=== PATIENT | female | born 1995 ===

== ENCOUNTER 2017-09-17 19:45 | Emergency (ER) | payer OTHER ==
[2017-09-17 19:46] VITALS: BMI 25.7
[2017-09-17 20:22] VITALS: BP 114/73; PULSE 68; RESP 18; TEMP 98.3; O2SAT 100
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
--- NOTE | 2017-09-18 08:39 | RAD ---
Date of service: 09/17/2017 PROCEDURE: Cervical Spine Radiographs. HISTORY: Pain. COMPARISON: None. FINDINGS: BONES: Alignment maintained. No fracture. Dens Intact. Pontinculus posticus, normal variant. DISC SPACES: Normal. SOFT TISSUES: Normal. No prevertebral soft tissue swelling. OTHER FINDINGS: None. IMPRESSION: Normal cervical spine radiographs
== END 2017-09-17 21:17 | disposition home or self-care (01) ==
LOC: H.ER 19:45
DX: S13.4XXA Sprain of ligaments of cervical spine, initial encounter (principal); Y04.2XXA Assault by strike against or bumped into by another person, initial encounter

== ENCOUNTER 2018-03-31 00:45 | Emergency (ER) | payer MEDICAID, OTHER ==
[2018-03-31 15:20] VITALS: BP 100/48; PULSE 76; RESP 17; TEMP 97.8; O2SAT 98
[2018-03-31] MEDS ORDERED: Albuterol-Ipratrop 3 mg / 0.5 (3 ml) UD ONE (17:49)
--- NOTE | 2018-04-03 16:28 | US ---
Date of service: 03/31/2018 PROCEDURE: Limited obstetrical ultrasound HISTORY: vaginal bleeding LMP: 10/07/2017 COMPARISON: None TECHNIQUE: Standard protocol for this study/examination. FINDINGS: Posterior presentation. Variable placenta. No evidence of abruption or previa Gestational age derived from LMP 25 weeks. KIA[facility] 07/14/2018. Gestational age derived from the following biometric parameters 27 weeks 6 days. KIAH 419 Biparietal diameter 6.97 cm Head circumference 25.62 cm Abdominal circumference 23.31 cm Femur length 5.25 cm Estimated weight 1127 g Calculated cardiac rate 137 beats per min. Closed cervix measuring 5.5 cm IMPRESSION: Twenty-seven weeks 6 days live intrauterine gestation. Gestational concordance documented.
== END 2018-03-31 11:20 | disposition home or self-care (01) ==
LOC: H.EROB2 00:45
DX: O46.92 Antepartum hemorrhage, unspecified, second trimester (principal); O26.92 Pregnancy related conditions, unspecified, second trimester; M54.5 Low back pain; R10.2 Pelvic and perineal pain; Z3A.27 27 weeks gestation of pregnancy